=== PATIENT | male | born 1960 | race Caucasian/White ===

== ENCOUNTER 2016-04-13 15:52 | Day surgery (SDC) | payer OTHER ==
[2016-04-13] MEDS ORDERED: HYDROmorphone 1 MG/ML SYRINGE IM STA (16:51)
[2016-04-13] MEDS ORDERED: HYDROmorphone 1 MG/ML SYRINGE ONE (16:58)
[2016-04-13] MEDS ORDERED: AMPICILLIN/SULBACTAM 3 GM in SODIUM CHLORIDE 0.9% MINIBAG 100 ML IV STA (17:48)
[2016-04-13] MEDS ORDERED: LACTATED RINGERS 1,000 ML IV ONE (18:14)
[2016-04-13] MEDS ORDERED: fentaNYL 100 MCG/2 ML VIAL IVP ONE (18:30)
[2016-04-13] MEDS ORDERED: LIDOCAINE-MPF 2% 5 ML VIAL IM ONE (18:30)
[2016-04-13] MEDS ORDERED: DEXAMETHASONE 4 MG/ML VIAL IVP ONE (18:30)
[2016-04-13] MEDS ORDERED: MIDAZOLAM 2 MG/2 ML VIAL IVP ONE (18:30)
[2016-04-13] MEDS ORDERED: ONDANSETRON 4 MG/2 ML VIAL IVP ONE (18:30)
[2016-04-13] MEDS ORDERED: PROPOFOL 200 MG/20 ML VIAL IVP ONE (18:30)
[2016-04-13] MEDS ORDERED: ePHEDrine 50 MG/ML VIAL IVP ONE (18:30)
[2016-04-13] MEDS ORDERED: LIDOCAINE 1% 50 ML MDV SUBQ ONE (18:36)
[2016-04-13] MEDS ORDERED: BUPIVACAINE 0.5%-EPI 1:200000 PF 30 ML VIAL SUBQ ONE (18:36)
[2016-04-13] MEDS ORDERED: oxyCOD/ACETAMIN 5 MG/325 MG TABLET PO ONE (19:39)
== END 2016-04-13 19:59 ==
PROC: 0DJD7ZZ Inspection of Lower Intestinal Tract, Via Natural or Artificial Opening (ICD-10-PCS; principal; 2016-04-13 17:36)
DX: S31.814A Puncture wound with foreign body of right buttock, initial encounter (principal); W45.0XXA Nail entering through skin, initial encounter; Z87.891 Personal history of nicotine dependence
CPT/HCPCS: 36415; 45990; 80048; 85025; 96372; 96374; 99283; 99284; A9270; J1170; J7120

== ENCOUNTER 2018-11-28 07:24 | Outpatient (CLI) | payer OTHER ==
[2018-11-28 10:44] LABS: ALBUMIN 4.4 g/dL (3.2-5.5); ALBUMIN/GLOBULIN RATIO 1.8 (1.0-2.2); ALKALINE PHOSPHATASE 46 IU/L (42-121); ALT ALANINE AMINOTRANSFERASE 43 IU/L (10-60); AST ASPARTATE AMINOTRANSFERASE 34 IU/L (10-42); BILIRUBIN,TOTAL 0.5 mg/dL (0.2-1.0); BUN - BLOOD UREA NITROGEN 18 mg/dL (6-20); CALCIUM 9.2 mg/dL (8.5-10.3); CARBON DIOXIDE - CO2 30 mmol/L (21-32); CHLORIDE 104 mmol/L (101-111); CHOL/HDL RATIO 3.6 (<5.0); CHOLESTEROL 192 mg/dL; CREATININE 0.9 mg/dL (0.6-1.2); GFR - MDRD 87 (>89); GLUCOSE 111 mg/dL (70-100); HDL CHOLESTEROL 54 mg/dL; SODIUM 141 mmol/L (135-145); TOTAL PROTEIN 6.9 g/dL (6.7-8.2)
[2018-11-28 10:48] LABS: HB2 TOTAL 15.6 g/dL; HEMOGLOBIN A1C 0.57 g/dL; HEMOGLOBIN A1C % 5.5 % (4.6-6.2)
--- NOTE | 2018-11-28 16:10 | XRAY Report ---
Reason: PAIN IN RIGHT FINGERS AND LEFT THUMB Procedure Date: 11/28/2018 Accession Number: [id number] / [id number] Procedure: XRS - Finger(s) LT CPT Code: FULL RESULT: EXAM: LEFT THUMB DIGIT RADIOGRAPHY EXAM DATE: 11/28/2018 07:47 AM. CLINICAL HISTORY: PAIN IN RIGHT FINGERS AND LEFT THUMB. COMPARISON: None. TECHNIQUE: 3 views. FINDINGS: Bones: Normal. No fracture or bone lesion. Joints: Narrowing of scaphomultangular joint. No subluxations. Soft Tissues: Normal. No soft tissue swelling. IMPRESSION: 1. Unremarkable left thumb. 2. Scaphomultangular joint degenerative changes. [facility] ADDENDUM: 11/28/18 16:18 Additional comment: First carpometacarpal joint space appears narrowed on oblique film with subchondral sclerosis along distal aspect of trapezium. Findings are compatible with mild first carpometacarpal joint degenerative change.
--- NOTE | 2018-11-28 16:22 | XRAY Report ---
Reason: PAIN IN LEFT FINGERS AND RIGHT THUMB Procedure Date: 11/28/2018 Accession Number: [id number] / [id number] Procedure: XRS - Finger(s) RT CPT Code: FULL RESULT: EXAM: RIGHT THUMB DIGIT RADIOGRAPHY EXAM DATE: 11/28/2018 07:47 AM. CLINICAL HISTORY: PAIN IN LEFT FINGERS AND RIGHT THUMB. Chronic first [facility] joint pain. COMPARISON: FINGER(S) LT 11/28/2018 7:54 AM. TECHNIQUE: 3 views. FINDINGS: Bones: Normal. No fracture or bone lesion. Joints: Mild narrowing of first carpometacarpal joint. Mild spurring versus small exostosis along base of first metacarpal. No subluxations. Soft Tissues: Normal. No soft tissue swelling. IMPRESSION: 1. Early first carpometacarpal joint degenerative change. RAD[facility]
== END 2018-11-28 07:25 | disposition home or self-care (01) ==
LOC: DI.S 07:24
PROVIDERS: ATTEND Physician Assistant
DX: Z00.00 Encounter for general adult medical examination without abnormal findings (principal); M18.11 Unilateral primary osteoarthritis of first carpometacarpal joint, right hand; M19.042 Primary osteoarthritis, left hand; Z12.5 Encounter for screening for malignant neoplasm of prostate; R73.01 Impaired fasting glucose; E78.2 Mixed hyperlipidemia
CPT/HCPCS: 36415; 73140; 80053; 80061; 83036; 83721; 84153

== ENCOUNTER 2022-01-19 07:26 | Outpatient (CLI) | payer OTHER ==
--- NOTE | 2022-01-19 12:43 | CT Report ---
PROCEDURE: Low Dose Lung Cancer Screen INDICATIONS: EX SMOKER, SCREENING FOR AAA TECHNIQUE: Noncontrast low-dose axial images were acquired from the pulmonary apices to the posterior costophren ic angles. Multiplanar MIP reformats were then reconstructed. For radiation dose reduction, the follo wing was used: automated exposure control, adjustment of mA and/or kV according to patient size. COMPARISON: None. FINDINGS: Image quality: Excellent. Lungs and pleura: There is a 3 mm nodule in the right upper lobe (series 4 image 147). No acute pulm onary opacity. No pleural effusions. Mediastinum: Heart size is normal. No pericardial effusion. No mediastinal adenopathy by size crit eria. Thoracic aorta and central pulmonary arteries are normal in size. Esophagus is normal in antonio abraham. No hiatal hernia. Bones and chest wall: No suspicious bony lesions. No vertebral body compression fractures. No axil thai or supraclavicular adenopathy by size criteria. The thyroid is normal in size and there are no incidental findings. Abdomen: Visualized upper abdomen solid organs and bowel loops appear normal in the absence of contr ast. IMPRESSION: 1. There is a small lung nodule in the right upper lobe. ACR lung RADS category 2. Recommend annual s creening lung CT in 12 months. Reviewed by: Jeffry Brooks MD on 01/19/2022 12:42 PM PST Approved by: Jeffry Brooks MD on 01/19/2022 12:42 PM PST Station ID: [id number]
--- NOTE | 2022-01-19 16:48 | Ultrasound Report ---
PROCEDURE: Aorta Screening INDICATIONS: EX SMOKER, SCREENING FOR AAA TECHNIQUE: Real time scanning was performed of the aorta and iliac arteries, with image documentatio n. COMPARISON: Ultrasound abdomen 03/05/2014 FINDINGS: Aorta: Proximal aortic diameter measures 2.3 x 2.3 cm. Mid-aorta measures 1.9 x 2.0 cm. Distal aor tic diameter is 1.8 x 1.7 cm. Iliac arteries: Right common iliac artery measures 1.2 x 1.2 cm. Left common iliac artery measures 1.1 x 1.2 cm. IMPRESSION: No aneurysmal dilation. Reviewed by: Brenda Felder MD on 01/19/2022 4:46 PM PST Approved by: Brenda Felder MD on 01/19/2022 4:46 PM PST Station ID: [id number]
== END 2022-01-19 07:27 | disposition home or self-care (01) ==
LOC: DI 07:26
PROVIDERS: ATTEND Nurse Practitioner Family
DX: Z12.2 Encounter for screening for malignant neoplasm of respiratory organs (principal); Z13.6 Encounter for screening for cardiovascular disorders; Z87.891 Personal history of nicotine dependence; R91.1 Solitary pulmonary nodule

== ENCOUNTER 2022-08-23 09:45 | Outpatient (CLI) | payer OTHER ==
--- NOTE | 2022-08-23 16:24 | XRAY Report ---
PROCEDURE: Knee 3 View LT INDICATIONS: LEFT KNEE PAIN TECHNIQUE: 3 views of the left knee(s) were acquired. COMPARISON: None. FINDINGS: Bones: No fractures or dislocations. No suspicious bony lesions. Mild degenerative changes small os teophytes. Soft tissues: No knee joint effusion. No suspicious soft tissue calcifications or masses. IMPRESSION: Mild left knee degenerative change. Reviewed by: Mark Jc MD on 08/23/2022 4:22 PM PDT Approved by: Mark Jc MD on 08/23/2022 4:22 PM PDT Station ID: [id number]
== END 2022-08-23 09:46 | disposition home or self-care (01) ==
LOC: DI.S 09:45
PROVIDERS: ATTEND Nurse Practitioner Family
DX: M17.12 Unilateral primary osteoarthritis, left knee (principal)

== ENCOUNTER 2023-01-19 09:52 | Outpatient (CLI) | payer OTHER ==
--- NOTE | 2023-01-19 11:47 | CT Report ---
PROCEDURE: Low Dose Lung Cancer Screen INDICATIONS: PERSONAL HISTORY OF NICOTINE DEPENDENCE TECHNIQUE: A CT scan of the chest was performed. Intravenous contrast media was not administered. Images were re corded and evaluated at appropriate window settings. Reformats: axial MIP of the chest, coronal and s agittal. For radiation dose reduction, the following was used: automated exposure control, adjustment of mA and/or kV according to patient size. COMPARISON: 02/18/2022 FINDINGS: Image quality: Excellent. Prior cancer history: No. Lungs and pleura: No pleural effusions. No pneumothorax. Previously noted 3 mm pulmonary nodule invo lving the patient's right upper lobe remains stable. No new pulmonary nodules or focal infiltrates ar e seen. Mediastinum: Heart size is normal. No pericardial effusion. No large vessel abnormality. No mediastin al adenopathy by size criteria. There is some mild atherosclerotic vascular calcifications. Chest wall and lower neck: Thyroid is unremarkable. No axillary or supraclavicular adenopathy by size . Bones: No aggressive osseous abnormality. Upper Abdomen: Unremarkable. IMPRESSION: Lung RAD: 2 - Benign. Recommendation: Continue annual screening in 12 Months with LDCT Reviewed by: Fabian Velasco MD on 01/19/2023 11:45 AM PST Approved by: Fabian Velasco MD on 01/19/2023 11:45 AM PST Station ID: [id number]
== END 2023-01-19 09:53 | disposition home or self-care (01) ==
LOC: DI 09:52
PROVIDERS: ATTEND Nurse Practitioner Family
DX: Z12.2 Encounter for screening for malignant neoplasm of respiratory organs (principal); Z87.891 Personal history of nicotine dependence; R91.1 Solitary pulmonary nodule